=== PATIENT | female | born 1940 ===

== ENCOUNTER 2023-09-20 16:47 | Emergency (ER) | payer OTHER ==
[~2023-09-20] VITALS: Ht 154.9 cm; Wt 68.0 kg
== END 2023-09-20 20:17 | disposition home or self-care (01) ==
LOC: ER 16:47
DX: S01.22XA Laceration with foreign body of nose, initial encounter (principal); W18.39XA Other fall on same level, initial encounter; Y93.89 Activity, other specified; Y92.89 Other specified places as the place of occurrence of the external cause